=== PATIENT | female | born 1950 | race Caucasian/White ===

== ENCOUNTER → 2020-01-25 13:00 | Outpatient (CLI) | payer MEDICARE, SELFPAY ==
--- NOTE | ~2020-01-25 | XR_ITS ---
EXAMINATION: XR chest 2V DATE: 01/25/2020 13:12 INDICATION: Shortness of breath, dyspnea unspecified, tobacco use TECHNIQUE: PA and lateral views of the chest are obtained. COMPARISON: 09/24/2018 FINDINGS: The lungs are hyperinflated but free of acute opacities. There is no pleural effusion or pn eumothorax. The cardiomediastinal silhouette is normal. There is mild thoracic spondylosis. IMPRESSION: 1. Hyperinflation without acute cardiopulmonary abnormality. Reviewed, dictated and finalized at location A.
== END ==
PROVIDERS: PCP Family Medicine; Visit Provider Physician Assistant
DX: R06.00 Dyspnea, unspecified (principal); J44.9 Chronic obstructive pulmonary disease, unspecified; R91.8 Other nonspecific abnormal finding of lung field
CPT/HCPCS: 71046

== ENCOUNTER 2021-08-11 19:48 | Emergency (ER) | payer MEDICARE, SELFPAY ==
--- NOTE | ~2021-08-11 | CT_ITS ---
EXAMINATION: CT abdomen pelvis w con DATE: 08/12/2021 01:12 INDICATION: Upper abdominal pain. TECHNIQUE: Computed tomography (CT) of the abdomen and pelvis was performed with 100 cc Omnipaque 350 intravenous contrast. The dose-length product was 321.09 mGy-cm. Automated exposure control and iter ative reconstruction technique were employed. COMPARISON: CT dated 10/08/2005. FINDINGS: There is basilar atelectasis. Heart size normal. There is atherosclerosis of the aorta with significant stenosis of the distal abdominal aorta near the bifurcation. The right common iliac davide ry is occluded or nearly completely occluded along its entire course with diminutive right external i liac artery reconstituted at its origin. High-grade left common iliac artery stenosis. There is high- grade stenosis of the right renal artery and moderate stenosis of the left renal artery. There is chloe nosis at the origin of the celiac axis and SMA. The LEXY is not identified. There is right renal atrophy with multiple small right renal cyst. Left kidney is normal. The liver, spleen and pancreas within normal limits. Gallbladder is present. Nonobstructive bowel gas pattern. N ormal appendix. IMPRESSION: 1. Severe atherosclerosis as described above with significant stenosis of the distal abdominal aorta, bilateral common iliac arteries, renal arteries, celiac axis, SMA and possible occlusion of the LEXY. Recommend surgical consultation. 2: Severe atrophy of the right kidney. Reviewed, dictated and finalized at location A. IMPRESSION: 1. Severe atherosclerosis as described above with significant stenosis of the d istal abdominal aorta, bilateral common iliac arteries, renal arteries, celiac axis, SMA and possible occlusion of the LEXY. Recommend surgical consultation. 2: Severe atrophy of the right kidney.
[2021-08-11 19:57] VITALS: BP 138/76; PULSE 80; RESP 15; TEMP 36.4; O2SAT 97
--- NOTE | 2021-08-11 22:51 | ECG_ITS ---
Measurements Intervals [place] Rate: 69 P: 59 ID: [id number] QRS: 85 QRSD: 81 T: 67 QT: 403 QTc: 434 Interpretive Statements SINUS RHYTHM ARTIFACT LIMITS INTERPRETATION NONSPECIFIC T-WAVE ABNORMALITY ABNORMAL ECG Electronically Signed On 08-12-2021 11:16:47 CDT by Shivam Grande M.D.
--- NOTE | 2021-08-11 22:53 | ED.ABDPAIN ---
HPI - Abdominal Pain General Chief Complaint: Abdominal Pain Stated Complaint: RUQ pain x 1 day Time Seen by Provider: 08/11/21 22:42 Source: patient Mode of arrival: ambulatory Limitations: no limitations History of Present Illness HPI narrative: Patient is a 8-year-old female complaining of right upper quadrant pain, 5 out of 10, sharp, nonradiating started yesterday. Patient denies any chest pain, shortness of breath, nausea, vomiting, diarrhea, urinary symptoms, fever or chills. Related Data Allergies Allergy/AdvReac Type Severity Reaction Status Date / Time amoxicillin Allergy Unknown Nausea Verified 08/11/21 22:50 cephalexin Allergy Unknown heartburn Verified 08/11/21 22:50 morphine Allergy Unknown lips/throat Verified 08/11/21 22:50 swell zolpidem Allergy Unknown makes her Verified 08/11/21 22:50 hyper, black out Review of Systems Review of Systems: All systems reviewed & are unremarkable except as noted in HPI and below Constitutional: Constitutional: Denies body ache(s), Denies chills, Denies excessive sweating, Denies fatigue, Denies fever(s), Denies headache(s), Denies lethargy, Denies malaise, Denies weakness and Denies weight loss Eyes: Eyes: Denies blurry vision, Denies change in vision and Denies loss of vision ENT: Denies dizziness, Denies ear discharge, Denies headache(s), Denies lip swelling, Denies epistaxis, Denies nasal congestion, Denies neck pain, Denies throat swelling and Denies tongue swelling Cardiovascular: Cardiovascular: Denies chest pain, Denies chest pain at rest, Denies chest pain with activity, Denies diaphoresis, Denies rapid heart rate, Denies edema, Denies irregular heart rhythm, Denies lightheadedness, Denies palpitations, Denies dyspnea and Denies dyspnea on exertion Respiratory: Respiratory: Denies chest congestion, Denies cough, Denies hemoptysis, Denies dyspnea and Denies dyspnea on exertion Gastrointestinal: Gastrointestinal: Denies melena, Denies hematochezia, Denies diarrhea, Denies nausea, Denies vomiting and Denies hematemesis Musculoskeletal: Musculoskeletal: Denies abnormal gait, Denies deformity, Denies joint swelling, Denies limited range of motion, Denies neck pain and Denies numbness Neurologic: Denies Abnormal speech present, Denies abnormal gait, Denies confusion, Denies dizziness, Denies headache(s), Denies focal weakness, Denies loss of vision, Denies numbness, Denies Other visual disturbances, Denies Sensory deficit (Neuro) and Denies weakness Psychiatric: Psychiatric: Denies confusion, Denies depression, Denies auditory hallucinations, Denies homicidal ideation and Denies suicidal ideation Endocrine: Endocrine: Denies cold intolerance, Denies excessive sweating, Denies fatigue, Denies heat intolerance and Denies palpitations Hematologic/Lymphatic: Hematologic/Lymphatic: Denies easy bleeding and Denies easy bruising Allergic/Immunologic: Allergic/Immunologic: Denies lip swelling, Denies throat swelling and Denies tongue swelling PMF Past Medical History Medical History (Updated 08/12/21 @ 03:26 by Jun Rodrigez MD) History of mammogram (~12/25/11) Myocardial infarction (~1990) Surgical History Surgical History History of cardiac cath (~2001) Family History Family History Other Family history of cardiovascular disease Social History Social History Smoking status: Current some day smoker Alcohol intake: current Exam Const: General: cooperative, healthy appearing, comfortable, no acute distress, well developed, alert and awake; No confusion Orientation/consciousness: oriented to person, oriented to place, oriented to time, patient oriented x3 and No confusion Limitations: no limitations HENMT: Head: normal to inspection, normocephalic and atraumatic Ears: hearing
[2021-08-11 22:58] VITALS: BP 155/87; PULSE 73; RESP 20; O2SAT 99
[2021-08-11 23:01] VITALS: BP 155/86; PULSE 71; RESP 20; O2SAT 99
[2021-08-11 23:47] VITALS: BP 167/63; PULSE 70; RESP 14; O2SAT 98
[2021-08-11 23:48] LABS: Add Urine Microscopic? YES; Appearance Urine Cloudy (Clear); Bacteria Urine Trace /hpf; Bilirubin Urine Negative (Negative); Blood Urine 1+ (Negative); Color Urine Yellow (Yellow); Glucose Urine UA Negative (Negative); Ketones Urine Negative (Negative); Leukocyte Esterase Ur 3+ LEU/UL (Negative); Mucus Urine Rare /lpf; Nitrate Urine Negative (Negative); Protein Urine Negative (Negative); Specific Grav Ur 1.011 (1.001-1.035); Squamous Epithelial Cell Urine Many /hpf (Few); Transitional Epi Cells Urine Rare /hpf (None Seen); Urobilinogen Urine Negative mg/dL (<2.0); WBC Urine 16-20 /hpf
[2021-08-12 00:28] LABS: Basophils Absolute Auto 0.1 K/mm3 (0.0-0.1); Basophils Percent Auto 0.5 % (0.2-1.2); Eosinophils Absolute Auto 0.1 K/mm3 (0-0.3); Eosinophils Percent Auto 0.8 % (0-4.4); Hematocrit 48.4 % (37.0-47.0); Hemoglobin 15.3 g/dL (12.0-15.0); Immature Granulocyte Absolute 0.03 K/mm3 (0.00-0.031); Immature Granulocyte Percent A 0.3 % (0-0.5); Lymphocytes Absolute Auto 2.06 K/mm3 (0.9-3.2); Lymphocytes Percent Auto 19.3 % (18.3-44.2); Mean Corpuscular HGB Conc 31.6 g/dl (32-36); Mean Corpuscular Volume 94.9 fl (80-100); Monocytes Absolute Auto 0.8 K/mm3 (0.1-0.6); Monocytes Percent Auto 7.1 % (2.6-8.5); Neutrophils Absolute Auto 7.7 K/mm3 (1.3-6.7); Platelet Count Result 218 k/mm3 (150-375); Red Cell Distribution Width 13.6 % (11.5-14.5); White Blood Count 10.7 K/mm3 (4.5-10.0)
[2021-08-12 00:31] VITALS: BP 171/99; PULSE 72; RESP 18; O2SAT 99
[2021-08-12 00:40] LABS: Alanine Aminotransferase 23 U/L (4-35); Albumin Level 4.7 g/dL (3.5-5.1); Alkaline Phosphatase 90 U/L (38-126); Anion Gap 6 mmol/L (8-16); Aspartate Amino Transferase 26 U/L (14-36); Bilirubin,Total 0.7 mg/dL (0.2-1.3); Blood Urea Nitrogen 13 mg/dL (7-17); Calcium 9.4 mg/dL (8.4-10.2); Carbon Dioxide 26 mmol/L (22-30); Chloride 103 mmol/L (98-107); Estimated CRCL calculation 43 ml/min; Estimated Glomerular Filt Rate > 60; Glucose 121 mg/dL (65-110); Lipase 455 U/L (23-300); Potassium 4.1 mmol/L (3.4-5.0); Sodium 135 mmol/L (137-145)
[2021-08-12] MEDS: FAMOTIDINE 20 MG TABLET 40 MG PO (00:42)
--- NOTE | 2021-08-12 00:52 | PC.NURSE ---
Pt to imaging at this time.
[2021-08-12 00:55] LABS: Troponin I < 0.012 ng/mL (0.000-0.034)
[2021-08-12] MEDS: BELLADONNA ALK/PHENOB ELIX 10 ML, MAG HYDROX/ALUMINUM HYD/SIMETH 30 ML, LIDOCAINE HCL 2... PO (01:45)
[2021-08-12 01:48] VITALS: BP 166/65; PULSE 72; RESP 24; O2SAT 98
[2021-08-12 02:02] VITALS: BP 161/77; PULSE 74; RESP 16; O2SAT 97
[2021-08-12 02:54] VITALS: BP 133/77; PULSE 72; RESP 20; O2SAT 98
[2021-08-12 03:43] VITALS: BP 146/69; PULSE 68; RESP 16; O2SAT 95
== END 2021-08-12 03:43 | disposition home or self-care (01) ==
PROVIDERS: Emergency Provider Emergency Medicine; PCP Family Medicine
DX: R10.11 Right upper quadrant pain (principal); I70.0 Atherosclerosis of aorta; I70.8 Atherosclerosis of other arteries; I35.0 Nonrheumatic aortic (valve) stenosis; I25.2 Old myocardial infarction; F17.200 Nicotine dependence, unspecified, uncomplicated; R94.31 Abnormal electrocardiogram [ECG] [EKG]
CPT/HCPCS: 36415; 74177; 80053; 81001; 83690; 84484; 85025; 87086; 87088; 93005; 99284; A9270; Q9967

== ENCOUNTER 2021-10-28 07:34 | Outpatient (CLI) | payer MEDICARE, SELFPAY ==
--- NOTE | ~2021-10-28 | NM_ITS ---
EXAMINATION: NM fredy stress w perfusion DATE: 10/28/2021 10:40 INDICATION: Abnormal electrocardiogram. Dyspnea. TECHNIQUE: Rest images were obtained following intravenous administration of 10.0 mCi Tc99m tetrofosm in (Myoview). The patient was infused intravenously with Lexiscan (regadenoson). Then, 32.5 mCi Tc99m tetrofosmin (Myoview) was administered intravenously, and supine and prone stress images were obtain ed. Data was reconstructed into short axis and horizontal and vertical long axis SPECT images. Gated SPECT images were also obtained. COMPARISON: None. FINDINGS: There is no definite reversible or fixed perfusion abnormality to suggest ischemia or infar ction. There is no segmental wall motion abnormality. Left ventricular ejection fraction measures 6 6%. IMPRESSION: 1. No definite ischemia or infarct. 2. Normal left ventricular ejection fraction measuring 66%. Reviewed, dictated and finalized at location A.
--- NOTE | 2021-10-28 07:45 | ECHO_ITS ---
Patient Info Name: Chyna Mandel Age: 71 years : 1950 Gender: Female Ht: 61 in Wt: 138 lbs BSA: 1.66 m2 BP: 138 / 86 mmHg Technical Quality: Good Exam Date: 10/28/2021 8:19 AM Exam Location: [facility] Pulmonary Patient Status: Outpatient Admit Date: 10/28/2021 Staff Ordering Physician: Hardeep Hollins DO Executive Staff Assistant: Sajan Chakraborty, MELANIE, RT Attending Provider: Hardeep Hollins DO Referring Physician: Gurvinder PIRES; Exam Type: CA echo doppler color flow Study Info Indications R06.00 - Dyspnea, unspecified Complete two-dimensional, color flow and Doppler transthoracic echocardiogram is performed. Strain analysis performed. Summary 1. Complete two-dimensional, color flow and Doppler transthoracic echocardiogram is performed. 2. Left ventricular chamber dimension is normal. 3. Left ventricular systolic function is normal, estimated at 60-65%. 4. The left ventricular diastolic function is abnormal. 5. E/e' 11 is mildly elevated. 6. Global longitudinal strain is normal at -21.0%. 7. There is mild aortic valve sclerosis. 8. There is mild tricuspid valve regurgitation. 9. No pulmonary hypertension, estimated pulmonary arterial systolic pressure is 37 mmHg. Left Ventricle E/e' 11 is mildly elevated. Global longitudinal strain is normal at -21.0%. Left ventricular chamber dimension is normal. Left ventricular systolic function is normal, estimated at 60-65%. The left ventricular diastolic function is abnormal. Right Ventricle Right ventricular systolic function is normal and with normal TAPSE 1.9 cm. Right ventricular chamber dimension is normal. Left Atria Left atrial chamber dimension is normal. Right Atria Right atrial chamber dimension is normal. Aortic Valve The aortic valve is trileaflet. There is mild aortic valve sclerosis. There is no aortic valve stenosis. There is no aortic valve regurgitation. Pulmonic Valve There is no pulmonic regurgitation. Mitral Valve There is no mitral valve stenosis. There is no mitral valve regurgitation. Tricuspid Valve There is mild tricuspid valve regurgitation. No pulmonary hypertension, estimated pulmonary arterial systolic pressure is 37 mmHg. Pericardium/Pleural There is no pericardial effusion. Inferior Vena Cava Normal inferior vena cava with >50% collapse upon inspiration consistent with normal right atrial pressure, 5 mmHg. Aorta The aortic root size at the sinus of Valsalva is normal. Left Ventricular Outflow Tract Name Value Normal LVOT 2D LVOT Diameter 1.9 cm LVOT Doppler LVOT Peak Gradient 3 mmHg LVOT Mean Gradient 2 mmHg LVOT VTI 22 cm LVOT VTI/AV VTI Ratio 0.8 LVOT Stroke Volume 67 ml LVOT CO 4.4 l/min LVOT CI 2.7 l/min/m2 Mitral Valve Name Value Normal
--- NOTE | 2021-10-28 07:54 | EST_ITS ---
Patient Info Name: Chyna Mandel Age: 71 years : 1950 Gender: Female Ht: 61 in Wt: 138 lbs BSA: 1.66 m2 HR: 63 bpm BP: 159 / 67 mmHg Heart Rhythm: Sinus Rhythm Exam Date: 10/28/2021 9:31 AM Exam Location: [facility] Stress Patient Status: Outpatient Admit Date: 10/28/2021 Staff Ordering Physician: Hardeep Hollins DO Attending Provider: Hardeep Hollins DO Exercise Physician: Hardeep Hlolins DO Exam Type: CA stress fredy w NM Study Info Indications R06.00 - Dyspnea, unspecified A regadenoson stress test was performed. Summary 1. 1. Negative lexiscan stress test for ischemic ST changes by ECG criteria. 2. 2. Baseline hypertension. 3. 3. Nuclear scan to follow and will be reported separately. Please correlate with it. 4. 4. Patient informed of the above results. Protocol: Lexiscan Stress ECG Details Stage: REST Duration (min): 1 min : 56 sec HR (bpm): 63 SBP (mmHg): 159 DBP (mmHg): 67 Stage: REST Duration (min): 2 min : 25 sec HR (bpm): 63 SBP (mmHg): 159 DBP (mmHg): 67 Stage: REST Duration (min): 3 min : 3 sec HR (bpm): 60 SBP (mmHg): 159 DBP (mmHg): 67 Stage: REST Duration (min): 15 min : 35 sec HR (bpm): 65 SBP (mmHg): 159 DBP (mmHg): 67 Stage: STAGE 1 Duration (min): 0 min : 59 sec HR (bpm): 80 SBP (mmHg): 155 DBP (mmHg): 74 Stage: RECOVERY Duration (min): 1 min : 0 sec HR (bpm): 82 SBP (mmHg): 155 DBP (mmHg): 74 Stage: RECOVERY Duration (min): 2 min : 0 sec HR (bpm): 80 SBP (mmHg): 155 DBP (mmHg): 74 Stage: RECOVERY Duration (min): 3 min : 0 sec HR (bpm): 80 SBP (mmHg): 144 DBP (mmHg): 74 Stage: RECOVERY Duration (min): 3 min : 8 sec HR (bpm): 81 SBP (mmHg): 144 DBP (mmHg): 74 Rest HR: 65 bpm Peak HR: 84 bpm Rest Sys BP: 159 mmHg Peak Sys BP: 155 mmHg Max Pred HR: 150 bpm % Max Pred HR: 56 % Target HR: 128 bpm Max RPP: 13,020 bpm*mmHg Termination Reason: Completed protocol Cardiac Symptoms: Shortness of breath Total Time: 1 min : 0 sec Rest Pike BP: 67 mmHg Peak Pike BP: 74 mmHg Total Dose: 0.4 mg Resting ECG Sinus rhythm. Stress ECG No ST changes. Arrhythmias None. Report Signatures
== END 2021-10-28 07:35 | disposition home or self-care (01) ==
LOC: ANHCARD 07:37
PROVIDERS: PCP Family Medicine; Visit Provider Internal Medicine Cardiovascular Disease
DX: R06.00 Dyspnea, unspecified (principal); I35.8 Other nonrheumatic aortic valve disorders; I07.1 Rheumatic tricuspid insufficiency
CPT/HCPCS: 78452; 93017; 93306; A9502; J2785

== ENCOUNTER 2021-12-19 09:31 | Outpatient (CLI) | payer MEDICARE, SELFPAY ==
--- NOTE | ~2021-12-19 | CT_ITS ---
EXAMINATION: CTA abd aorta runoff DATE: 12/19/2021 10:46 INDICATION: Atherosclerosis of the [place] arteries TECHNIQUE: Computed tomographic angiography (CTA) of the abdomen, pelvis, and both lower extremities was performed with 150 mL Omnipaque-350 intravenous contrast. The dose-length product (DLP) was 633.2 3 mGy-cm. Maximum intensity projection 3D-reconstructions of the arteries were created by the technol augustina on a separate workstation. Automated exposure control and iterative reconstruction technique we re employed. COMPARISON: 08/12/2021 FINDINGS: ABDOMINAL AORTA AND ITS BRANCHES: There is calcified atherosclerosis of the abdominal aorta without aneurysm or dissection. There is se zhane stenosis of the distal aorta near the bifurcation. The celiac axis, superior mesenteric artery, and inferior mesenteric artery are normal at their origins. Single renal arteries are present. There is severe stenosis at the origin of the right renal artery and mild to moderate stenosis at the origi n of the left renal artery. PELVIC VASCULATURE: The right internal iliac artery is occluded at its origin and reconstitutes just before the bifurcati on. There is calcified atherosclerosis and severe stenosis of the left internal iliac artery. There i s calcified atherosclerosis and mild stenosis of the external iliac arteries and right internal iliac artery. RIGHT LOWER EXTREMITY VASCULATURE: There are areas of calcified atherosclerosis and mild stenosis in the superficial femoral artery. The popliteal artery is normal. There is calcified atherosclerosis and mild stenosis in the tibial peron eal trunk. The anterior and posterior tibial arteries and peroneal artery are normal. There is a thre e-vessel runoff at the ankle. LEFT LOWER EXTREMITY VASCULATURE: There is calcified atherosclerosis without hemodynamically significant stenosis of the superficial fe moral artery. The popliteal artery is unremarkable. There is atherosclerosis and moderate stenosis in the distal tibial peroneal trunk. The anterior and posterior tibial arteries and peroneal artery are unremarkable. There is a three-vessel runoff at the ankle. ADDITIONAL FINDINGS: Minimal dependent atelectasis is present in the lung bases. The heart size is normal. There is a smal l sliding hiatal hernia. The liver, spleen, pancreas, gallbladder, and adrenal glands are normal. The re is atrophy of the right kidney which contains multiple cysts. The left kidney is unremarkable. No pathologically enlarged abdominal or pelvic lymph nodes are identified. There is no free intraperiton eal gas or evidence of bowel obstruction. A moderate volume of colonic stool is present. IMPRESSION: 1. 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 Otherwise atherosclerosis as detailed above, wor st at the right renal artery origin, the distal abdominal aorta and the left internal iliac artery. Reviewed, dictated and finalized at location L. IMPRESSION: 1. 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 Otherwise atherosclerosis as detailed above, worst at the right renal artery origin, the distal abdominal aorta and the left internal iliac artery.
[2021-12-19 10:39] LABS: Estimated Glomerular Filt Rate > 60
== END 2021-12-19 09:32 | disposition home or self-care (01) ==
LOC: ANHIMG 09:33
PROVIDERS: PCP Family Medicine
DX: I70.213 Atherosclerosis of native arteries of extremities with intermittent claudication, bilateral legs (principal); I35.0 Nonrheumatic aortic (valve) stenosis; K44.9 Diaphragmatic hernia without obstruction or gangrene
CPT/HCPCS: 75635; Q9967

== ENCOUNTER 2022-12-08 10:30 | Outpatient (CLI) | payer MEDICARE, SELFPAY ==
[2022-12-08 21:22] LABS: Alanine Aminotransferase 34 U/L (6-35); Albumin Level 4.4 g/dL (3.5-5.1); Alkaline Phosphatase 80 U/L (38-126); Anion Gap 7 mmol/L (8-16); Aspartate Amino Transferase 35 U/L (14-36); Bilirubin,Total 0.5 mg/dL (0.2-1.3); Blood Urea Nitrogen 14 mg/dL (7-17); Calcium 9.7 mg/dL (8.4-10.2); Carbon Dioxide 30 mmol/L (22-30); Chloride 99 mmol/L (98-107); Cholesterol 183 mg/dL (0-200); Estimated Glomerular Filt Rate > 60; Glucose 109 mg/dL (65-110); HDL Direct 76 mg/dL; Potassium 4.2 mmol/L (3.4-5.0); Sodium 136 mmol/L (137-145); Triglycerides 89 mg/dL (<150)
[2022-12-08 21:33] LABS: LDL Cholesterol Direct 71 mg/dL
[2022-12-08 22:12] LABS: Vitamin D 25 Hydroxy 65.8 ng/mL
== END 2022-12-08 10:31 | disposition home or self-care (01) ==
LOC: ANHGOSHLAB 10:33
PROVIDERS: PCP Family Medicine; Visit Provider Nurse Practitioner
DX: E55.9 Vitamin D deficiency, unspecified (principal); E78.00 Pure hypercholesterolemia, unspecified; I10 Essential (primary) hypertension; R73.03 Prediabetes; Z13.29 Encounter for screening for other suspected endocrine disorder
CPT/HCPCS: 36415; 80053; 80061; 82306; 83036; 84443

== ENCOUNTER 2022-12-17 10:21 | Outpatient (CLI) | payer MEDICARE, SELFPAY ==
--- NOTE | 2022-12-21 10:10 | WPDSIXMINUTE ---
Six Minute Walk Procedure Procedure Performed Pulmonary Stress Test (6 min walk) Six Minute Walk Six Minute Walk: DATE OF SERVICE: 12/18/2019 REQUESTING: Hardeep Hollins DO REASON FOR TESTING: COPD SIX MINUTE WALK This test was conducted per ATS guidelines. The initial saturation was 98%, and initial heart rate was 68. The patient walked without stopping, completing 1100 ft/ 335 m.. The saturation at the end of testing was 96%, and the heart rate was 74. This test was conducted while the patient was breathing room air. IMPRESSION: This is a normal study. The patient did not require supplemental oxygen with exertion. Nighat Munoz MD
--- NOTE | 2022-12-21 10:16 | WPDPFTINT ---
PFT Procedure Performed PFT Procedure Performed Plethysmography (Lung Vol) Diffusing Cap (DLCO) Flow Vol Loop Spirometry w/o Bronchodil PFT Interpretation DOS: 12/17/2022 REQUESTING: Hardeep Hollins DO REASON FOR TESTING: COPD PULMONARY FUNCTION TESTS Results are reliable and reproducible. Spirometry: FEV1 is 0.93 L, 47% predicted, severely decreased. FVC is 2.42 L, 96% predicted, normal. FEV1 / FVC ratio was 38% severely decreased consistent with airflow obstruction. No bronchodilator was administered. Lung volumes: Total lung capacity is 5.89 L, 128% predicted, consistent with mild hyperinflation. Residual volume is 3.37 L, 164% predicted, severe air trapping. RV/TLC is 57%, elevated, consistent with air trapping. Airway resistance is 4.05, 268% predicted, increased. Diffusion: DLCO is 8.0, 42% predicted, severely decreased. The DLCO/VA is 2.25 L, 51%, moderately reduced. Flow volume loop: There is severe coving of the expiratory limb consistent with airflow obstruction. IMPRESSION: The study shows a severe obstructive ventilatory impairment with mild hyperinflation and severe air trapping, severe diffusion impairment. This is consistent with COPD. There is no prior study for comparison. Nighat Munoz MD
== END 2022-12-17 10:22 | disposition home or self-care (01) ==
PROVIDERS: PCP Family Medicine; Visit Provider Internal Medicine Cardiovascular Disease
DX: J44.9 Chronic obstructive pulmonary disease, unspecified (principal); R94.2 Abnormal results of pulmonary function studies
CPT/HCPCS: 94375; 94618; 94726; 94729

== ENCOUNTER 2023-04-12 09:45 | Outpatient (RCR) | payer MEDICARE, SELFPAY | END 2023-04-12 23:59 | disposition home or self-care (01) | LOC: ANHCPREHAB 09:45 | PROVIDERS: PCP Family Medicine; Visit Provider Internal Medicine Cardiovascular Disease | DX: J44.9 Chronic obstructive pulmonary disease, unspecified (principal) | CPT/HCPCS: 93798; 94625 ==

== ENCOUNTER 2023-05-10 09:45 | Outpatient (RCR) | payer MEDICARE, SELFPAY | END 2023-08-16 08:06 | disposition home or self-care (01) | LOC: ANHCPREHAB 09:45 | PROVIDERS: PCP Family Medicine; Visit Provider Internal Medicine Cardiovascular Disease | DX: J44.9 Chronic obstructive pulmonary disease, unspecified (principal) | CPT/HCPCS: 94625 ==

== ENCOUNTER 2025-05-21 15:55 | Emergency (ER) | payer MEDICARE, SELFPAY ==
--- NOTE | 2025-05-21 16:08 | ED.FEMALEGU ---
HPI - Female Genitourinary General Chief complaint: Urogenital-Female Stated complaint: Uti Symptoms Time Seen by Provider: 05/21/25 16:30 Source: patient Mode of arrival: ambulatory Limitations: no limitations History of Present Illness HPI Narrative: Chyna is a 74-year-old female patient presenting to the clinic today with complaints of possible to UTI x1 week. She reports she is having burning, frequency, and urgency with urination. She denies any back pain or abdominal pain. Denies any nausea vomiting or diarrhea. Denies any fevers, chills, body aches. Had taken azo earlier in the week Related Data Allergies Allergy/AdvReac Type Severity Reaction Status Date / Time amoxicillin Allergy Unknown Nausea Verified 05/21/25 16:42 cephalexin Allergy Unknown heartburn Verified 05/21/25 16:42 morphine Allergy Unknown lips/throat Verified 05/21/25 16:42 swell zolpidem Allergy Unknown makes her Verified 05/21/25 16:42 hyper, black out doxycycline AdvReac Intermediate flulike Uncoded 11/30/24 11:42 symptoms Review of Systems Review of Systems: Pertinent positives per HPI. Patient denies any fever, chills, rash, headache, visual changes, dizziness, cough, runny nose, sore throat, shortness of breath, chest pain, palpitations, nausea, vomiting, diarrhea, constipation, abdominal pain PMFSH Past Medical History Medical History History of mammogram (~12/25/11) Myocardial infarction (~1990) Surgical History Surgical History History of intravascular stent placement January 2022 History of cardiac cath (~2001) Family History Family History Father Family history of cardiovascular disease Social History Social History Social History: Caffeine- coffee Smoking packs per day: 1 Smoking cigarettes per day: 20.0 Years smoked: 50 Smoking pack-years: 50.00 Smoking status: Former smoker Alcohol intake: current Alcohol use details: rarely Substance use: never Substance use type: does not use Lack of Transportation: No Lack of Food: Never True Current Housing: I Have Housing Concerned About Future Housing: No Difficulty Paying Gas/Electric Bills: No Difficulty Paying for Meds: No Currently Unemployed: No Education: High School Diploma/GED Difficulty w/ Childcare or Family Care: No Comments At the time of my signature, I reviewed and agree with the nursing past medical, surgical, social, and family history. There is no relevant family history pertinent to the patient complaint. Exam Narrative: General: Well-developed, well nourished, in no apparent distress. Head: Normocephalic, atraumatic. Cardio: Regular rate and rhythm, s1 and s2 normal, no murmur appreciated. Resp: Clear to auscultation bilaterally, no rhonchi, rales, wheezing or rubs. Abdomen: Soft, pliable, bowel sounds present in all quadrants, suprapubic tender to palpation, no organomegly, no CVAT tenderness. Course Course Level of Care: Express Care Visit Vital Signs Vital signs: Vital Signs Temperature 36.8 C 05/21/25 16:24 Pulse Rate 64 05/21/25 16:24 Respiratory Rate 18 05/21/25 16:24 Blood Pressure 105/57 L 05/21/25 16:24 Pulse Oximetry 95 05/21/25 16:24 Oxygen Delivery Room Air 05/21/25 16:24 Temperature 36.8 C 05/21/25 16:24 Pulse Rate 64 05/21/25 16:24 Respiratory Rate 18 05/21/25 16:24 Blood Pressure 105/57 L 05/21/25 16:24 Pulse Oximetry 95 05/21/25 16:24 Oxygen Delivery Room Air 05/21/25 16:24 [facility] Narrative Medical decision making narrative: At the time of visit patient is resting comfortably on the exam table. Patient appears to be nontoxic. Complaints of possible to UTI x1 week. She reports she is having burning, frequency, and urgency with urination. She denies any back pain or abdominal pain. Denies any nausea vomiting or diarrhea. Denies any fevers, chills, body aches. Had taken azo earlier in the week. On exam patient has soft, pliable, nondistended abdomen, mild suprapubic tenderness, no CVAT tenderness, no organomegaly. Urine dip ordered. Labs: Urinalysis dip was performed and showed positive for leukocytes, nitrates, protein, and blood. We will send urine for culture. Plan: Patient has urinary tract infection. Prescription for back was sent to the pharmacy. We will send urine for culture. Supportive measures were discussed with the patient and they voiced understanding discharge instructions and agrees to treatment plan. Return precautions reviewed Differential Diagnosis Differential Diagnosis: Differential diagnostic considerations for female urogenital issues include urinary tract infection, bacterial vaginosis, cervicitis, ovarian cyst, vaginitis, STI exposure, ovarian torsion, ectopic , cyst of Bartholin?s gland, cystitis, dysmenorrhea. Lab Data Labs: Lab Results 05/21/25 Range/Units 16:36 POC Urine Color Yellow POC Urine Clarity Clear POC Urine pH 6.0 POC Ur Specif [place] 1.025 POC Urine Protein 1+ (Negative) POC Ur Glucose (UA) Negative (Negative) POC Urine Ketones Negative (Negative) POC Urine Blood 1+ (Negative) POC Urine Nitrite Positive (Negative) POC Urine Bilirubin Negative (Negative) POC Urine Urobilinogen 0.2 POC U Leukocyte Esteras 3+ (Negative) Discharge Plan Discharge Clinical Impression: Acute UTI Patient Disposition: Home Condition: Stable Instructions: Antibiotic Form, Urinary Tract Infection in Older Adults (ED) Additional Instructions: Urinalysis positive for leukocytes nitrates, protein, and blood. We will send urine for culture. Take Bactrim as prescribed Increase fluids and stay well hydrated Wipe front to back. May use wet wipes. Avoid tub baths If sexually active- pee before and after intercourse. Wear cotton panties Avoid tight clothing up against the genitals Follow up with your PCP in 1 week if symptoms persist. Patient Language: Greek Prescriptions: New sulfamethoxazole-trimethoprim [Bactrim DS] 800-160 mg tablet 1 tablet PO Q12H 7 Days Qty: 14 0RF No Action (DME) Nebulizer See Rx Instructions .Route .MEDSUPPLY Qty: 1 0RF Rx Instructions: Use Nebulizer every 4-6 hours as needed for shortness of breath atorvastatin 80 mg tablet See Rx Instructions .ROUTE .COMPLEX Qty: 90 2RF Dose Instruction: Take 1 tablet by mouth once daily Rx Instructions: Take 1 tablet by mouth once daily bupropion HCl 300 mg tablet extended release 24 hr See Rx Instructions .ROUTE .COMPLEX Qty: 90 1RF Dose Instruction: TAKE 1 TABLET BY MOUTH IN THE MORNING Rx Instructions: TAKE 1 TABLET BY MOUTH IN THE MORNING metoprolol succinate 50 mg tablet extended release 24 hr See Rx Instructions .ROUTE .COMPLEX Qty: 90 1RF Dose Instruction: Take 1 tablet by mouth once daily Rx Instructions: Take 1 tablet by mouth once daily albuterol sulfate 2.5 mg /3 mL (0.083 %) solution for nebulization 2.5 mg inhalation Q4-6H PRN (Reason: shortness of breath or wheezing) Qty: 180 2RF amlodipine-benazepril 10-20 mg capsule See Rx Instructions .ROUTE .COMPLEX Qty: 90 1RF Dose Instruction: Take 1 capsule by mouth once daily Rx Instructions: Take 1 capsule by mouth once daily metformin [Glucophage XR] 500 mg tablet extended release 24 hr 500 mg PO DAILY Qty: 90 1RF Anoro Ellipta 62.5-25 mcg/actuation blister with device See Rx Instructions .ROUTE .COMPLEX Qty: 60 5RF Dose Instruction: Inhale 1 puff by mouth once daily Rx Instructions: Inhale 1 puff by mouth once daily albuterol sulfate 90 mcg/actuation HFA aerosol inhaler See Rx Instructions .ROUTE .COMPLEX Qty: 9 3RF Dose Instruction: INHALE 1 TO 2 PUFFS BY MOUTH EVERY 4 TO 6 HOURS NEEDED FOR SHORTNESS OF BREATH FOR WHEEZING Rx Instructions: INHALE 1 TO 2 PUFFS BY MOUTH EVERY 4 TO 6 HOURS NEEDED FOR SHORTNESS OF BREATH FOR WHEEZING Follow-up/Referrals: Mayte Richards DO [Primary Care Provider, [facility]] Time of Disposition: 16:45 Quality NIHSS Nursing Documentation ED NIHSS nursing documentation: reviewed/agree
[2025-05-21 16:24] VITALS: BP 105/57; PULSE 64; RESP 18; TEMP 36.8; O2SAT 95
[2025-05-21 16:38] LABS: EDUAAPPEAR Clear; EDUABILI Negative (Negative); EDUABLOOD 1+ (Negative); EDUACOLOR1 Yellow; EDUAGLUCOSE Negative (Negative); EDUAKETONE Negative (Negative); EDUALEUKO 3+ (Negative); EDUANITRATE Positive (Negative); EDUAPH 6.0; EDUAPROTEIN 1+ (Negative); EDUASPGRAVITY 1.025; EDUAUROBILI 0.2
== END 2025-05-21 16:48 | disposition home or self-care (01) ==
PROVIDERS: Emergency Provider Nurse Practitioner Family; PCP Family Medicine
DX: N39.0 Urinary tract infection, site not specified (principal); Z87.891 Personal history of nicotine dependence
CPT/HCPCS: 81003; 99213; G0463